=== PATIENT | female | born 1960 | race Caucasian/White ===

== ENCOUNTER 2018-06-09 21:06 | Emergency (ER) | payer OTHER, SELFPAY ==
[2018-06-09] MEDS ORDERED: Lorazepam 1 MG TAB ONE (22:27)
[2018-06-10] MEDS ORDERED: Clindamycin 150 MG CAP ONE (00:19)
== END 2018-06-10 00:30 | disposition home or self-care (01) ==
LOC: ERS 21:06
DX: N76.4 Abscess of vulva (principal); I10 Essential (primary) hypertension; I45.81 Long QT syndrome; Z79.899 Other long term (current) drug therapy
CPT/HCPCS: 57010

== ENCOUNTER 2018-06-10 15:44 | Emergency (ER) | payer OTHER | END 2018-06-10 17:23 | disposition home or self-care (01) | LOC: ERS 15:44 | DX: Z48.817 Encounter for surgical aftercare following surgery on the skin and subcutaneous tissue (principal) | CPT/HCPCS: 99282 ==